=== PATIENT | female | born 1965 | race Caucasian/White ===

== ENCOUNTER 2016-10-13 15:43 | Emergency (ER) | payer OTHER ==
[~2016-10-13] VITALS: Ht 172.7 cm; Wt 82.7 kg
[~2016-10-13 15:43] MED LIST: ALEVE220 M2 PO; ALLEGRA-D 241 TABLET PO; BENZONATATE200 MG PO; CALCIUM 500 +1 EACH PO; CARDIZEM CD240 MG PO; CELEBREX200 MG PO; CYMBALTA30 MG PO; CYMBALTA60 MG PO; DELTASONE20 M1 PO; DUONEB 2.5-0.5 M3 ML AEROSOL; Effexor PO; FLONASE16 G1 BOTH NARES; GABAPENTIN300 MG PO; HYDROCHLOROTHIA25 MG PO; HYDROCODON-ACE1 EA12 PO; LAMICTAL100 MG PO; LEVOFLOXACIN750 MG PO; LISINOPRIL-HCT1 EAC3 PO; MIRALAX255 GM PO; MONTELUKAST SOD10 MG PO; MORPHINE; NASONEX17 GM BOTH NARES; NEURONTIN300 MG PO; NUCYNTA ER50 MG PO; Neurontin PO; OMEPRAZOLE40 M1 PO; PAROXETINE HCL40 MG PO; PAXIL20 MG PO; PREDNISONE20 MG PO; PREVACID15 MG PO; PRILOSEC20 MG PO; PROVENTIL HFA6.7 GM IH; RESTORIL15 MG PO; SKELAXIN400 M1 PO; SPIRIVA RESPIMAT4 GM IH; Skelaxin PO; TOPAMAX100 MG PO; TRAMADOL HCL50 MG PO; Theragran PO; ULTRAM50 MG PO; VICODIN HP 11 TABLET PO; VICODIN,LORT1 TABLET PO; Vicodin,Norco 5/325 PO; XOPENEX1.25 MG/0. AEROSOL; ZANAFLEX2 MG PO; ZANAFLEX4 MG PO; ZYRTEC10 M3 PO
[2016-10-13 16:21] LABS: MCH 27.7 PG (29.0-34.0); MCHC 32.3 G/DL (30.0-36.0); MEAN PLAT.VOLUME 9.1 uM^3 (9.5-12.4); PLATELET COUNT 313 K/uL (156-360); RBC DIS.WIDTH-SD 40.1 % (39-53); RED BLOOD COUNT 4.65 M/uL (3.80-5.20); WHITE BLOOD COUNT 7.1 K/uL (4.1-10.2)
[2016-10-13 16:32] LABS: CHLORIDE 105 mEq/L (99-109); POTASSIUM 3.4 mEq/L (3.7-5.4); SODIUM 139 mEq/L (136-147)
[2016-10-13 16:34] LABS: GLUCOSE 104 mg/dL (70-99)
[2016-10-13 16:35] LABS: ANION GAP 10 MEQ/L (2-14)
[2016-10-13 16:36] LABS: TOTAL BILIRUBIN 0.4 mg/dL (0.0-1.0)
[2016-10-13 16:38] LABS: ALKALINE PHOSPHATASE 57 IU/L (3-129); GFR ESTIMATE (CALCULATED) > 59 mL/min/
[2016-10-13 16:39] LABS: UREA NITROGEN (BUN) 16 mg/dL (9-23)
[2016-10-13 16:47] LABS: QUANTITATIVE HCG < 4.0 MIU/ML
[2016-10-13 17:37] LABS: ADD MIUA? NO; BILIRUBIN NEGATIVE; BLOOD NEGATIVE; GLUCOSE (STRIP) NEGATIVE; KETONES NEGATIVE; LEUKOCYTES NEGATIVE; NITRITE NEGATIVE; PROTEIN (STRIP) NEGATIVE; SPECIFIC GRAVITY 1.013 (1.000-1.030); UCUL ADDED? NO; UROBILINOGEN 0.2 MG/DL (0.2-1.0)
[2016-10-13 17:40] LABS: COLOR LT YELLOW ((YELLOW))
[2016-10-13] MEDS ORDERED: ASTHMANEX IH (18:12)
[2016-10-13 21:23] VITALS: BP 122/84
== END 2016-10-13 21:24 | disposition home or self-care (01) ==
LOC: EME 15:43
DX: R10.30 Lower abdominal pain, unspecified (principal); J45.909 Unspecified asthma, uncomplicated; I10 Essential (primary) hypertension; K21.9 Gastro-esophageal reflux disease without esophagitis; Z98.1 Arthrodesis status
CPT/HCPCS: 76856; 80053; 81003; 84702; 85027; 99281; 99284; J3010

== ENCOUNTER 2017-11-18 17:38 | Emergency (ER) | payer OTHER ==
[~2017-11-18] VITALS: Ht 162.6 cm; Wt 76.4 kg
[~2017-11-18 17:38] MED LIST changes: +ASTHMANEX IH
[2017-11-18 17:48] VITALS: BP 129/84
== END 2017-11-18 19:40 | disposition home or self-care (01) ==
LOC: EME 17:38
DX: S39.012A Strain of muscle, fascia and tendon of lower back, initial encounter (principal); S80.02XA Contusion of left knee, initial encounter; V49.40XA Driver injured in collision with unspecified motor vehicles in traffic accident, initial encounter; Z88.5 Allergy status to narcotic agent; Z88.1 Allergy status to other antibiotic agents; Z91.041 Radiographic dye allergy status
CPT/HCPCS: 72100; 73564; 99281; 99283